=== PATIENT | male | born 2000 | race Caucasian/White ===

== ENCOUNTER 2021-12-04 11:26 | Emergency (ER) | payer OTHER ==
[2021-12-04] MEDS ORDERED: Diphtheria,Pertussis(Acell),Tetanus Vaccine 0.5 ML Syringe IM ONE (11:36)
[2021-12-04] MEDS ORDERED: Bacitracin Oint 1 GM U/D Packet TOP ONE (12:26)
== END 2021-12-04 12:48 | disposition home or self-care (01) ==
LOC: MW.ED 11:26
DX: S01.81XA Laceration without foreign body of other part of head, initial encounter (principal); Z23 Encounter for immunization; W31.89XA Contact with other specified machinery, initial encounter
CPT/HCPCS: 70450; 70450-26; 72125; 72125-26; 99283-25